=== PATIENT | male | born 2000 ===

== ENCOUNTER 2020-02-02 20:15 | Emergency (ER) | payer SELFPAY ==
[~2020-02-02] VITALS: Ht 172.7 cm; Wt 73.5 kg
[2020-02-02 20:15] VITALS: BP 120/86
== END 2020-02-02 20:35 | disposition left against medical advice (07) ==
LOC: M ED 20:15
DX: Z53.21 Procedure and treatment not carried out due to patient leaving prior to being seen by health care provider (principal)